=== PATIENT | male | born 1985 | race Hispanic/Latino ===

== ENCOUNTER 2025-03-27 20:42 | Emergency (ER) | payer OTHER ==
[~2025-03-27] VITALS: Ht 167.6 cm; Wt 56.7 kg
[2025-03-27 23:03] VITALS: PULSE 90; RESP 17; TEMP 98.5
[2025-03-27] MEDS: CYCLOBENZAPRINE HCL 10 MG TAB PO ONE (23:24)
[2025-03-27] MEDS: SODIUM CHLORIDE 0.9% 1000ML 1,000 ML IV SCH (23:25)
[2025-03-27] MEDS: KETOROLAC TROMETHAMINE 30 MG/ML VIAL IV ONE (23:25)
[2025-03-27 23:56] LABS: ANION GAP 15.4 mmol/L (8-16); CALCIUM 8.1 mg/dL (8.4-10.2); CREATININE, SERUM 1.79 mg/dL (0.72-1.25); POTASSIUM 4.4 mmol/L (3.5-5.1)
[2025-03-28] MEDS ORDERED: KETOROLAC TROMETHAMINE 30 MG/ML VIAL IV ONE
[2025-03-28] MEDS: SODIUM CHLORIDE 0.9% 1000ML 1,000 ML IV SCH (01:51)
[2025-03-28 04:31] VITALS: BP 100/61; PULSE 90; RESP 17; TEMP 98.6; O2SAT 100
== END 2025-03-28 05:12 | disposition other institution (70) ==
LOC: FSED 21:13
DX: R20.0 Anesthesia of skin (principal); R20.2 Paresthesia of skin; S94.8X Injury of other nerves at ankle and foot level; X58.XXXA Exposure to other specified factors, initial encounter; Y92.89 Other specified places as the place of occurrence of the external cause; F17.210 Nicotine dependence, cigarettes, uncomplicated
CPT/HCPCS: 36415; 70450; 72131; 73610; 73630; 80048; 83735; 85025; 99284; J1885; J7030 ×2